=== PATIENT | male | born 1945 ===

== ENCOUNTER 2024-04-22 12:02 | Outpatient (CLI) | payer MEDICARE, MEDICAID, SELFPAY ==
--- NOTE | ~2024-04-22 | PE_ITS ---
EXAMINATION: PET_PETPSMAST_PT DATE: 04/22/2024 14:44 INDICATION: Prostate cancer TECHNIQUE: 5.001 mCi of Illucix Ga-68([id number]) was administered i.v. Low dose computed froylan graphy (CT) images were acquired from the base of the brain to the base of the brain to the proximal thighs for attenuation correction and anatomic localization. Positron emission tomography (PET) image s were acquired in the same distribution beginning 85 minutes after injection. Images including fused PET/CT images were reconstructed in axial, coronal, and sagittal planes. Automated exposure control technique was employed. The dose-length product was 955.18mGy-cm. COMPARISON: None FINDINGS: Head/neck: Typical pattern of symmetric physiologic increased activity in the lacrimal, parotid and submandibula r glands as well as along the mucosa of the nasal and oral cavities, pharynx and hypopharynx. No path ologically enlarged cervical lymphadenopathy or suspicious foci of increased uptake in the visualized head or neck. Chest: Moderate emphysema. Calcified nodule in the basilar right lower lobe along with calcified right hilar and mediastinal lymph nodes consistent with old granulomatous disease. No suspicious pulmonary nodul es, pneumonia, pulmonary edema or pleural effusion. Heart size normal. Atherosclerotic coronary arter y calcium. Aortic valve calcification. No pericardial effusion. Thoracic aorta is normal in caliber. No pathologically enlarged or PSMA abdomen thoracic lymphadenopathy. Abdomen/pelvis/proximal thighs: Physiologic renal accumulation and excretion of activity in the kidneys, bladder and along portions o f ureters. 2.2 cm low-attenuation cyst with coarse splenic photopenic defect at the lower pole of the right kidney. There are brachytherapy seeds distal left of midline at the peripheral zone of the [place] near its confluence with the left seminal vesicle with maximal density of 9.5 consistent with l ikely locally recurrent primary prostate cancer. Normal degree and slightly heterogenous pattern of i ncreased uptake throughout the liver and spleen without radiologic correlate or dominant PSMA avid le luis alberto. There are a few scattered small low density hepatic cysts the largest measuring 1.5 cm with cor responding photopenic defect on PET imaging along the peripheral gallbladder fossa. Multiple scattere d small hepatic and splenic calcifications consistent with old granulomatous disease. Cholelithiasis with a few low-density gallstones in nondependent gallbladder and high attenuation calcified gallston es in the dependent neck of the gallbladder. Bilateral adrenal glands are normal. Moderate uptake sca ttered throughout the bowels with typical duodenal and proximal jejunal predominance and without radi ologic correlate, also likely physiologic. There is prominent sigmoid diverticulosis without adjacent inflammatory change to suggest diverticulitis. Normal appendix. There is calcified atherosclerosis of the aorta and many of the other arteries. There is fusiform aneurysm of the left common iliac alcides ry measuring up to 2.5 cm. 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 No other abnormal foci of increased uptake or p athologically enlarged lymphadenopathy in the abdomen, pelvis or proximal thighs. Musculoskeletal: No suspicious lytic, blastic or PSMA abdomen bone lesions to suggest metastatic disease. IMPRESSION: 1. Brachytherapy seeds in the prostate with small focus of increased asymmetric activity at the left peripheral zone of the prostate near the confluence with the left seminal vesicle consistent with loc ally recurrent disease. No evidence of metastatic disease. 2. Moderate emphysema. 3. Cholelithiasis. 4. 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
== END 2024-04-22 12:03 | disposition home or self-care (01) ==
PROVIDERS: Visit Provider Urology
DX: C61 Malignant neoplasm of prostate (principal); J43.9 Emphysema, unspecified; K80.20 Calculus of gallbladder without cholecystitis without obstruction
CPT/HCPCS: 78815; A9596